=== PATIENT | female | born 1965 | race Caucasian/White ===

== ENCOUNTER 2018-11-13 16:53 | Emergency (ER) | payer OTHER ==
[~2018-11-13] VITALS: Ht 170.2 cm; Wt 72.6 kg
[2018-11-13 16:58] VITALS: BP 211/103
[2018-11-13] MEDS ORDERED: TORADOL IV STA (17:29)
[2018-11-13] MEDS ORDERED: TORADOL ONE (17:35)
--- NOTE | 2018-11-13 17:38 | ER.PDOC ---
General Chief Complaint: Abdomen Pain Stated Complaint: ABD PAIN Time seen by MD: 17:22 Source: patient Exam Limitations: no limitations History of Present Illness Initial Comments Pt c/o L sided flank/abd pain started a couple days ago Severity/Quality: moderate Radiation: LLQ Associated Symptoms: swelling/mass in abdomen (feels like L abd is swollen) Exacerbated by: nothing Relieved By: nothing Allergies: Coded Allergies: Sulfa (Sulfonamide Antibiotics) (Verified Allergy, Unknown, 11/13/18) Vital Signs First Vital Signs Date Time Temp Pulse Resp B/P (MAP) Pulse Ox O2 Delivery O2 Flow Rate FiO2 11/13/18 16:58 97.9 79 18 211/103 (139) 97 Room Air 97.9 Last Vital Signs Date Time Temp Pulse Resp B/P (MAP) Pulse Ox O2 Delivery O2 Flow Rate FiO2 11/13/18 18:21 69 18 216/91 (132) 98 Room Air 11/13/18 17:09 97.9 97.9 Past Medical History Medical History: other (kidney stones) Surgical History: hysterectomy, tonsillectomy Family History Significant Family History: no pertinent family hx Social History Smoking: less than 1 pack/day Alcohol Use: none Drug Use: none Constitutional: no symptoms reported EENTM: no symptoms reported Respiratory: no symptoms reported Cardiovascular: no symptoms reported Gastrointestinal: abdomen distended, abdominal pain; denies blood streaked bowels, denies constipated, denies difficulty swallowing, denies nausea, denies poor appetite, denies poor fluid intake, denies rectal bleeding Genitourinary: no symptoms reported Musculoskeletal: back pain; denies gout, denies joint pain Skin: no symptoms reported Psychiatric/Neurological: no symptoms reported Hematologic/Lymphatic: no symptoms reported All Other Systems: Reviewed and Negative Physical Exam General Appearance: Other (uncomfortable) HEENT: PERRL/EOMI, Normal ENT Inspection, TMs Normal, Pharynx Normal Neck: Non-Tender, Full Range of Motion, Supple, Normal Inspection Respiratory: chest non-tender, lungs clear, normal breath sounds, no respiratory distress, no accessory muscle use Cardiovascular: Normal Peripheral Pulses, Regular Rate, Rhythm, No Edema, No Ga llop, No JVD, No Murmur Gastrointestinal: Normal Bowel Sounds, No Organomegaly, No Pulsatile Mass, Soft, Tenderness (mild to L mid abdomen. Slightly more prominent bulge of abd on L vs R) Rectal: Deferred Back: No CVA Tenderness, Other (mild tenderness to soft tissue just above L iliac crest) Extremities: Normal Range of Motion, Non-Tender Neurologic/Psychiatric: No Motor/Sensory Deficits, Alert, Normal Mood/Affect, Oriented x 3 Skin: Normal Color, Warm/Dry Lymphatic: No Adenopathy Results/Orders Results/Orders Orders - KAREY SARAH Volodymyr DO Cbc With Auto Diff (11/13/18 17:29) Comprehensive Metabolic Panel (11/13/18 17:29) Amylase (11/13/18 17:29) Lipase (11/13/18 17:29) Urinalysis (11/13/18 17:29) Ct Abd/Pelvis Wo Iv Contrast (11/13/18 17:29) Ketorolac Tromethamine (Toradol) (11/13/18 17:29) Ketorolac Tromethamine (Toradol) (11/13/18 17:35) Vital Signs Date Time Temp Pulse Resp B/P (MAP) Pulse Ox O2 Delivery O2 Flow Rate FiO2 11/13/18 18:21 69 18 216/91 (132) 98 Room Air 11/13/18 18:01 210/98 (135) 11/13/18 17:41 188/113 (138) 11/13/18 17:09 97.9 79 18 97 Room Air 97.9 11/13/18 16:58 97.9 79 18 97.9 11/13/18 16:58 97.9 79 18 211/103 (139) 97 Room Air 97.9 Administered Medications Medications (Trade) Dose Ordered Sig/Falguni Route PRN Reason Start Time Stop Time Status Last Admin Dose Admin Ketorolac Tromethamine (Toradol) 30 mg STAT STAT IV 11/13/18 17:29 11/13/18 17:32 DC 11/13/18 17:45 30 MG Laboratory Tests Test 11/13/18 17:45 11/13/18 17:51 White Blood Count 8.1 10^3/uL (4.5-11.0) Red Blood Count 5.50 10^6/uL (4.00-5.20) H Hemoglobin 15.9 g/dL (12.0-15.0) H Hematocrit 46.7 % (36.0-46.0) H Mean Corpuscular Volume 84.9 fL (78-100) Mean Corpuscular Hemoglobin 28.9 pg (26-34) Mean Corpuscular Hemoglobin Concent 34.0 g/dL (33-37) Red Cell Distribution Width 15.1 % (11.5-14.5) H Platelet Count 334 10^3/uL (150-400) Mean Platelet Volume 10.3 fL (7.8-11.0) Neutrophils (%) (Auto) 49.7 % (41.0-85.0) Lymphocytes (%) (Auto) 37.0 % (24.0-44.0) Monocytes (%) (Auto) 9.1 % (5.0-12.0) Neutrophils # (Auto) 4.0 10^3/uL (1.8-7.7) Lymphocytes # (Auto) 3.0 10^3/uL (1.0-4.8) Monocytes # (Auto) 0.7 10^3/uL (0.3-0.8) Absolute Immature Granulocyte (auto 0.01 10^3 u/L (0-2) Immature Granulocytes % 0.10 % (0.00-0.50) Eosinophils % 3.4 % (0.0-5.0) Basophils % 0.7 % (0.0-0.2) H Basophils # 0.1 10^3/uL (0.0-0.1) Eosinophil Count 0.3 10^3/uL (0.0-0.2) H Sodium Level 144 mmol/L (132-145) Potassium Level 3.9 mmol/L (3.6-5.2) Chloride Level 106.0 mmol/L (96-109) Carbon Dioxide Level 27.8 mmol/L (20.0-32) Anion Gap 14.1 Blood Urea Nitrogen 12 mg/dL (7-18) Creatinine 0.75 mg/dL (0.59-1.40) Estimated GFR () 97.8 (>/=60) BUN/Creatinine Ratio 16.0 Glucose Level 94 mg/dL (70-110) Calcium Level 10.3 mg/dL (8.4-10.5) Total Bilirubin 0.3 mg/dL (0.2-1.0) Aspartate Amino Transferase (AST) 15 U/L (0-35) Alanine Aminotransferase (ALT) 22 U/L (12-78) Alkaline Phosphatase 103 U/L (50-136) Total Protein 7.6 g/dL (6.4-8.2) Albumin 4.2 g/dL (3.4-5.0) Globulin 3.4 Amylase Level 58 U/L (25-115) Lipase 82 U/L (114-286) L Urine Collection Type VOID Urine Color YELLOW (YELLOW) Urine Appearance CLEAR (CLEAR) Urine Bilirubin NEGATIVE MG/DL (NEGATIVE) Urine Ketones 15 mg/dL (NEGATIVE) H Urine Specific Schlater 1.025 (1.005-1.035) Urine pH 5 (5.0-6.0) Urine Protein NEGATIVE (NEGATIVE) Urine Urobilinogen 1.0 (NEGATIVE) H Urine Nitrate NEGATIVE (NEGATIVE) Urine Leukocyte Esterase NEGATIVE (NEGATIVE) Urine Blood NEGATIVE (NEGATIVE) Urine Glucose NORMAL (NEGATIVE) Progress Progress Neg CT, pt reports that upon further consideration, 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 Incidentally, her BP is elevated and I will start her on Norvasc until she sees her PMD in [place] shortly. Course Vitals & review Data Vital Sign - Last 24 Hours 11/13/18 11/13/18 11/13/18 11/13/18 16:58 16:58 17:09 17:41 Temp 97.9 97.9 97.9 97.9 97.9 97.9 Pulse 79 79 79 Resp 18 18 18 B/P (MAP) 211/103 (139) 188/113 (138) Pulse Ox 97 97 O2 Delivery Room Air Room Air 11/13/18 11/13/18 18:01 18:21 Pulse 69 Resp 18 B/P (MAP) 210/98 (135) 216/91 (132) Pulse Ox 98 O2 Delivery Room Air Laboratory Tests Test 11/13/18 17:45 11/13/18 17:51 White Blood Count 8.1 10^3/uL Red Blood Count 5.50 10^6/uL Hemoglobin 15.9 g/dL Hematocrit 46.7 % Mean Corpuscular Volume 84.9 fL Mean Corpuscular Hemoglobin 28.9 pg Mean Corpuscular Hemoglobin Concent 34.0 g/dL Red Cell Distribution Width 15.1 % Platelet Count 334 10^3/uL Mean Platelet Volume 10.3 fL Neutrophils (%) (Auto) 49.7 % Lymphocytes (%) (Auto) 37.0 % Monocytes (%) (Auto) 9.1 % Neutrophils # (Auto) 4.0 10^3/uL Lymphocytes # (Auto) 3.0 10^3/uL Monocytes # (Auto) 0.7 10^3/uL Absolute Immature Granulocyte (auto 0.01 10^3 u/L Immature Granulocytes % 0.10 % Eosinophils % 3.4 % Basophils % 0.7 % Basophils # 0.1 10^3/uL Eosinophil Count 0.3 10^3/uL Sodium Level 144 mmol/L Potassium Level 3.9 mmol/L Chloride Level 106.0 mmol/L Carbon Dioxide Level 27.8 mmol/L Anion Gap 14.1 Blood Urea Nitrogen 12 mg/dL Creatinine 0.75 mg/dL Estimated GFR () 97.8 BUN/Creatinine Ratio 16.0 Glucose Level 94 mg/dL Calcium Level 10.3 mg/dL Total Bilirubin 0.3 mg/dL Aspartate Amino Transf (AST/SGOT) 15 U/L Alanine Aminotransferase (ALT/SGPT) 22 U/L Alkaline Phosphatase 103 U/L Total Protein 7.6 g/dL Albumin 4.2 g/dL Globulin 3.4 Amylase Level 58 U/L Lipase 82 U/L Urine Collection Type VOID Urine Color YELLOW Urine Appearance CLEAR Urine Bilirubin NEGATIVE MG/DL Urine Ketones 15 mg/dL Urine Specific Schlater 1.025 Urine pH 5 Urine Protein NEGATIVE Urine Urobilinogen 1.0 Urine Nitrate NEGATIVE Urine Leukocyte Esterase NEGATIVE Urine Blood NEGATIVE Urine Glucose NORMAL Sepsis Infection Criteria Pres: None O2 Sat by Pulse Oximetry: 97 Departure Time of Disposition: 18:52 Disposition: 01 HOME, SELF-CARE Impression: Primary Impression: Abdominal pain Additional Impression: Hypertension Condition: Stable Duration or Time Spent with Pa: 35 Problem Qualifiers Primary Impression: Abdominal pain Abdominal location: unspecified location Qualified Codes: R10.9 - Unspecified abdominal pain Additional Impression: Hypertension Hypertension type: essential hypertension Qualified Codes: I10 - Essential (primary) hypertension KAREY SARAH DO Nov 13, 2018 17:38
[2018-11-13 17:41] VITALS: BP 188/113
[2018-11-13 17:47] LABS: BASOPHIL # 0.1 10^3/uL (0.0-0.1); BASOPHIL % 0.7 % (0.0-0.2); EOSINOPHIL # 0.3 10^3/uL (0.0-0.2); EOSINOPHIL % 3.4 % (0.0-5.0); HEMOGLOBIN 15.9 g/dL (12.0-15.0); MEAN CELL HGB 28.9 pg (26-34); MEAN CORP VOLUME 84.9 fL (78-100); MEAN PLATELET VOLUME 10.3 fL (7.8-11.0); MONOCYTES # 0.7 10^3/uL (0.3-0.8); MONOCYTES % 9.1 % (5.0-12.0); NEUTROPHILS % 49.7 % (41.0-85.0); RED CELL DISTRIBUTION WIDTH 15.1 % (11.5-14.5); WHITE BLOOD CELL 8.1 10^3/uL (4.5-11.0)
--- NOTE | 2018-11-13 17:52 | DIREP ---
PROCEDURE:CT ABDOMEN/PELVIS W/O CONTRAST COMPARISON:None. INDICATIONS:L flank/abd pain TECHNIQUE:Axial images were created through the abdomen and pelvis without intravenous contrast material. No oral contrast was administered. Sagittal and coronal reconstructions were performed from source images. FINDINGS: LUNG BASES:Normal. No visible pulmonary or pleural disease. Minimal left basilar scar LIVER:Normal. No significant liver lesions are identified. BILIARY:Normal. No visible dilatation or calcification. PANCREAS:Normal. No lesion, fluid collection, ductal dilatation, or atrophy. SPLEEN:Normal. No enlargement or focal lesion. ADRENALS:Normal. No mass or enlargement. URINARY TRACT:Normal. No focal lesions or hydronephrosis. AORTA/VASCULAR:There are aortic atherosclerotic calcifications present. No aneurysm. RETROPERITONEUM:Normal. No mass or adenopathy. BOWEL/MESENTERY:The appendix is visualized and appears normal. There is no intestinal obstruction, free fluid, free air or mesenteric inflammatory changes. ABDOMINAL WALL:Normal. No mass or hernia. PELVIC ORGANS:The uterus is surgically absent. No visible mass. BONES:Normal for age. No bony lesion or acute fracture. OTHER:Negative. CONCLUSION:No primary or secondary findings for renal stone. Hysterectomy. Dictated by: Elliot Hussein MD on 11/13/2018 at 05:47 PM
[2018-11-13 18:01] VITALS: BP 210/98
[2018-11-13 18:03] LABS: CALCIUM 10.3 mg/dL (8.4-10.5); CARBON DIOXIDE 27.8 mmol/L (20.0-32)
[2018-11-13 18:11] LABS: BILIRUBIN,URINE NEGATIVE (NEGATIVE)
[2018-11-13 18:14] LABS: APPEARANCE,URINE CLEAR (CLEAR); UA COLOR YELLOW (YELLOW)
[2018-11-13 18:21] VITALS: BP 216/91
--- NOTE | 2018-11-13 19:12 | NUR ---
Discharge: Pt discharge instructions given and pt voiced understanding. IV d/c with tip intact. Pt ambulated out of ed with visitor.
[2018-11-13 19:15] VITALS: BP 190/91
== END 2018-11-13 19:12 | disposition home or self-care (01) ==
LOC: ER 16:53
DX: R10.9 Unspecified abdominal pain (principal); R19.09 Other intra-abdominal and pelvic swelling, mass and lump; I10 Essential (primary) hypertension; F17.210 Nicotine dependence, cigarettes, uncomplicated; Z87.442 Personal history of urinary calculi; Z88.2 Allergy status to sulfonamides; Z90.710 Acquired absence of both cervix and uterus
CPT/HCPCS: 36415; 74176; 80053; 81002; 82150; 83690; 85025; 96374; 99285; J1885